=== PATIENT | female | born 1975 | race Caucasian/White ===

== ENCOUNTER 2021-09-22 10:41 | Emergency (ER) | payer BC ==
[~2021-09-22] VITALS: Ht 177.8 cm; Wt 119.1 kg
[2021-09-22 11:21] VITALS: BP 127/75
== END 2021-09-22 14:51 | disposition home or self-care (01) ==
LOC: ER 10:41
DX: L03.115 Cellulitis of right lower limb (principal); E11.621 Type 2 diabetes mellitus with foot ulcer; F41.9 Anxiety disorder, unspecified; F32.A Depression, unspecified; Z90.710 Acquired absence of both cervix and uterus; Z88.0 Allergy status to penicillin; Z88.5 Allergy status to narcotic agent
CPT/HCPCS: 82948; 99281; 99282